=== PATIENT | male | born 1980 | race Caucasian/White ===

== ENCOUNTER → 2020-04-17 09:54 | Outpatient (CLI) | payer BC, SELFPAY ==
[2020-04-17 10:46] LABS: Chloride 105 mmol/L (98-107)
[2020-04-17 10:47] LABS: Potassium 4.9 mmoL/L (3.5-5.1); Sodium 142 mmol/L (136-145)
[2020-04-17 10:49] LABS: Alanine Aminotransferase 22 U/L (12-78); Alkaline Phosphatase 71 U/L (38-126); Anion Gap 13.9 mEq/L (5-15); Aspartate Amino Transferase 24 U/L (17-59); Bilirubin,Total 0.7 mg/dl (0.2-1.3); Blood Urea Nitrogen 13 mg/dl (9-20); Carbon Dioxide 28 mmol/L (22.0-30.0); Cholesterol 195 mg/dl (140-200); Estimated Glomerular Filt Rate 127 ml/min (>60); GFR (African American) 154 ML/MIN (>60); Triglycerides 136 mg/dl (30-150); VLDL Cholesterol 27 mg/dL (0-40)
[2020-04-17 10:50] LABS: Albumin/Globulin Ratio 1.7 (1.1-1.8); Calcium 10.6 mg/dl (8.4-10.2); Chol/HDL Ratio 3.6 (1-3.5); Globulin 2.9 g/dL (1.3-3.2); Glucose 113 mg/dl (74-100); HDL Cholesterol 54 mg/dl (40-60); Total Protein,Serum 7.9 g/dl (6.3-8.2)
[2020-04-17 11:06] LABS: 25-OH Vitamin D, Total 27.5 ng/mL (30-100)
[2020-04-17 11:43] LABS: Uric Acid 5.1 mg/dl (3.5-8.5)
[2020-04-17 13:30] LABS: Basophils # 0.1 K/mm3 (0-0.2); Basophils % 0.7 % (0.1-2.0); Eosinophils # 0.2 K/mm3 (0.0-0.4); Eosinophils % 1.2 % (0.1-12.0); Hemoglobin 14.7 g/dL (14.1-18.0); Lymphocytes # 2.1 K/mm3 (0.7-4.5); Lymphocytes % 15.5 % (10-50); Mean Corpuscular HGB Conc 33.4 g/dL (31.8-35.4); Mean Corpuscular Volume 89.9 fl (80-94); Mean Platelet Volume 9.7 fl (7.4-10.4); Monocytes # 0.7 K/mm3 (0.1-1.0); Neutrophils # 10.6 K/mm3 (1.8-7.8); Neutrophils % 77.6 % (37.0-80.0); Platelet Count 270 K/mm3 (142-424); Red Blood Count 4.89 M/mm3 (4.60-6.20); Red Cell Distribution Width 12.7 % (11.5-17.5); White Blood Count 13.7 K/mm3 (4.8-10.8)
[2020-04-17 13:39] LABS: Direct LDL Cholesterol 110.36 mg/dL (100-129)
[2020-04-17 14:18] LABS: Vitamin B12 903 pg/mL (239-931)
== END ==
PROVIDERS: Visit Provider Nurse Practitioner Family
DX: I10 Essential (primary) hypertension (principal); E78.5 Hyperlipidemia, unspecified; E55.9 Vitamin D deficiency, unspecified; E53.8 Deficiency of other specified B group vitamins; M10.9 Gout, unspecified
CPT/HCPCS: 36415; 80053; 80061; 82306; 82607; 84550; 85025

== ENCOUNTER → 2022-04-07 12:24 | Outpatient (CLI) | payer BC, SELFPAY ==
--- NOTE | 2022-04-07 | CA_ITS ---
APPROVED REPORT EXAM: Comprehensive 2D, Doppler, and color-flow Echocardiogram Compressor Station Chief Engineer: Donna Salazar, RT(R) Ht: 5 ft 9 in Wt: 193lbs BSA: 2.03 BP: 129/79 mmHg Indications: CP, hyperlipidemia, MARTINES, family history of HD 2D Dimensions LVOT 2.27 cm (M/F) 1.5-2.5 LVEF ([facility]) 62.10 % M: 52 - 72 LV Volume 89.50 mL M: 62 - 150 LV Volume Index 43.87 mL/m2 M: 34 - 74 M-Mode Dimensions RVDd 2.81 cm (0.9-2.6) LA Diam 2.74 cm (1.9-4.0) LVDd 4.59 cm (3.5-5.7) Ao Diam 3.54 cm (2.0-3.7) LVDs 3.42 cm (3.5-5.7) IVSd 1.21 cm (0.6-1.1) PWd 0.99 cm (0.6-1.1) EF (Teich) 50.30% FS 25.50% EDV (Teich) 96.80 mL ESV (Teich) 48.10 mL LV Diastology E Decel Time 150.00 (160-240 msec) E/A Ratio 0.8 MED E' 6.80 (< 7 cm/sec) E'/MED E' Ratio 10.15 (>14) LAT E' 11.90 (<10 cm/sec) E/LAT E' Ratio 5.80 (>14) Mitral Valve MV E Max Jacob. 69.00 (40-130 cm/s) MV A Velocity 88.00 (40-130 cm/s) E/A Ratio 0.79 MV Decel. Time 150.00 (160-240 ms) MV PHT 44.00 ms Left Ventricle Left atrium is normal size left ventricle is normal size estimated ejection fraction 55% with no regional wall motion abnormality, diastolic parameters are within normal range. Right Ventricle Right atrium and right ventricle are normal size and contractility. Aortic Valve Aortic valve is grossly normal there is no aortic stenosis or aortic insufficiency. Mitral Valve Mitral valve grossly normal, there is trace mitral regurgitation. Tricuspid Valve Tricuspid valve is grossly normal, there is trace tricuspid regurgitation, tricuspid regurgitation jet velocity is inadequate for calculation of the right ventricular systolic pressure. Pulmonic Valve Pulmonic valve is poorly visualized. Great Vessels Aortic root is normal size. Inferior vena cava is normal size with normal inspiratory collapse. Pericardium No significant pericardial effusion noted. Conclusion 1. Normal left ventricular size preserved left ventricular systolic function, estimated ejection fraction 55% with no regional wall motion abnormality, diastolic parameters are within normal range. 2. Trace mitral and tricuspid regurgitation. 3. No significant pericardial effusion noted. 4. Inferior vena cava is normal size with normal inspiratory collapse. Electronically signed by : Cristhian Peace MD 04/08/2022 05:58:08
== END ==
PROVIDERS: PCP Internal Medicine Adolescent Medicine; Visit Provider Nurse Practitioner Family
DX: R07.9 Chest pain, unspecified (principal)
CPT/HCPCS: 93306

== ENCOUNTER → 2022-05-13 19:32 | Outpatient (CLI) | payer BC, SELFPAY | PROVIDERS: PCP Specialist; Visit Provider Specialist | DX: G47.33 Obstructive sleep apnea (adult) (pediatric) (principal); R40.0 Somnolence; R06.83 Snoring | CPT/HCPCS: G0399 ==

== ENCOUNTER 2023-04-25 17:40 | Emergency (ER) | payer OTHER, SELFPAY ==
[2023-04-25 18:00] VITALS: BP 136/94; PULSE 76; RESP 18; TEMP 36.6; O2SAT 98; BMI 29.5
--- NOTE | 2023-04-25 18:08 | ED_ITS ---
Discharge Plan Disposition Patient Disposition: Home, Self-Care Condition: Good Prescriptions Prescriptions: No Action rosuvastatin 20 mg tablet 20 mg PO DAILY Patient Comments: TAKE 1 TABLET BY MOUTH ONCE DAILY valsartan 80 mg tablet 80 mg PO DAILY Patient Comments: TAKE 1 TABLET BY MOUTH ONCE DAILY Referrals Follow up/Referrals: Maxwell Fajardo MD [Primary Care Provider] - See instructions Activity Restrictions/Add. Instructions Additional Instructions/Restrictions: Drink plenty of fluids. Eat a diet that is low in sodium. Take the hypertension medication (valsartan) daily. Follow up with your regular doctor. Call them in the morning to let them know what's going on and to get a follow up appointment there. GO TO THE ER FOR ANY WORSENING SYMPTOMS Clinical Impressions Clinical Impression: HTN (hypertension) Stand Alone Forms Stand Alone Forms: Work/School Release Instructions Patient Instructions: Essential Hypertension Discharge ED Provider: Leon Rodríguez [facility] [place] HPI General Stated complaint: blood pressure Time Seen by Provider: 04/25/23 18:08 History of Present Illness Provider Complaint: He states that his blood pressure has been running higher than normal. He has been getting readings of 150s/100 at home on his automatic wrist cuff. He has a history of hypertension, but he has not been taking his prescribed valsartan regularly until his recent episode of high blood pressure. He denies any chest pain, shortness of breath, n/v, and any other symptoms except he has been feeling more tired than normal Related Data Home Medications Medication Instructions Recorded Confirmed rosuvastatin 20 mg tablet 20 mg PO DAILY 05/07/22 04/25/23 valsartan 80 mg tablet 80 mg PO DAILY 04/25/23 04/25/23 Allergies Allergy/AdvReac Type Severity Reaction Status Date / Time No Known Allergies Allergy Verified 08/10/22 09:25 [facility] Disclaimer: The information contained in this section may have been updated after the patient was seen, as this information can be updated by other users. Medical History Presence of surgical screw in left hand Family History Other Heart attack Hyperlipidemia Hypertension Social History Smoking Status: Never smoker alcohol intake: current current occupational status: employed Travel in the last 8 weeks: None ROS Obtained: Yes All systems reviewed & no additional complaints except as documented Constitutional Constitutional: Denies chills and Denies fever(s) Eyes Eyes: Denies eye discharge ENT Ears, Nose, Mouth, and Throat: Denies dizziness, Denies otalgia and Denies sore throat Cardiovascular Cardiovascular: Denies chest pain Respiratory Respiratory: Denies shortness of breath, Denies chest congestion, Denies cough, Denies stridor and Denies wheezing Gastrointestinal Gastrointestingal: Denies nausea or vomiting Musculoskeletal Musculoskeletal: Reports system reviewed and no additional complaints, except as documented and Denies arthralgias Integumentary/Breasts Skin/Breast: Denies rash Neurologic Neurologic: Denies dizziness and Denies paresthesias Allergic/Immunologic Allergic/Immunologic: Denies wheezing Physical Exam General General appearance: alert and in no apparent distress Head Head exam: atraumatic, normocephalic and normal inspection Eye Eye exam: Present normal appearance, PERRL and EOMI ENT ENT exam: Present normal exam, normal oropharynx, mucous membranes moist, TM's normal bilaterally and normal external ear exam Neck Neck exam: Present normal inspection, full ROM and trachea midline; Absent meningismus or lymphadenopathy Chest Chest inspection: Present normal inspection and symmetric chest wall rise; Absent tenderness Respiratory Respiratory exam: Present normal lung sounds bilaterally; Absent respiratory distress Cardiovascular Cardiovascular exam: Present regular rate and normal rhythm; Absent JVD Abdominal Exam Abdominal exam: Present soft and normal bowel sounds; Absent distention, tenderness or guarding Extremities Exam Extremities exam: Present normal inspection, full ROM and normal capillary refill; Absent calf tenderness Back Exam Back exam: Present normal inspection; Absent tenderness Neurological Exam Neurological exam: Present alert and oriented X3 Psychiatric Psychiatric exam: Present normal affect and normal mood Skin Skin exam: Present warm, dry, intact and normal color Lymphatic Lymphatic Findings: no adenopathy Medical Decision Making Medical Records Medical records reviewed: No I reviewed the patient's medical records. Ok Inquiry Pt receiving controlled substance: No
[2023-04-25 19:08] VITALS: BP 136/94; PULSE 76; RESP 18; TEMP 36.6; O2SAT 98
== END 2023-04-25 19:08 | disposition home or self-care (01) ==
PROVIDERS: Emergency Provider Nurse Practitioner Family; PCP Internal Medicine Adolescent Medicine
DX: I10 Essential (primary) hypertension (principal); E78.5 Hyperlipidemia, unspecified; I25.2 Old myocardial infarction
CPT/HCPCS: 99204; 99212; G0463

== ENCOUNTER 2023-10-28 10:05 | Outpatient (CLI) | payer OTHER, SELFPAY ==
--- NOTE | 2023-10-28 10:11 | XR_ITS ---
FINAL REPORT CLINICAL HISTORY: LLQ PAIN COMPARISON: None FINDINGS: A single view of the abdomen was obtained. There is a nonobstructive bowel gas pattern with a moderate stool burden. There are no abnormal calcifications. IMPRESSION: Nonobstructive bowel gas pattern with a moderate stool burden. Reviewed, Interpreted and Dictated by Keith Mercado III, MD Transcribed by Martha Mcnulty Authenticated and [facility]
== END 2023-10-28 23:59 | disposition home or self-care (01) ==
LOC: RAD 10:06
PROVIDERS: PCP Nurse Practitioner Family; Visit Provider Nurse Practitioner Family
DX: R10.32 Left lower quadrant pain (principal); K59.01 Slow transit constipation
CPT/HCPCS: 74019

== ENCOUNTER 2024-06-21 09:05 | Day surgery (SDC) | payer OTHER, SELFPAY ==
[2024-06-19 15:27] VITALS: BMI 28.1
[2024-06-21 09:47] VITALS: BP 128/73; PULSE 90; RESP 17; TEMP 36.6; O2SAT 96
--- NOTE | 2024-06-21 10:03 | P.PNANES_ITS ---
[facility] Disclaimer: The information contained in this section may have been updated after the patient was seen, as this information can be updated by other users. Medical History Dysphagia Sleep apnea Presence of surgical screw in left hand Surgical History Hx of hand surgery Family History Other Heart attack Hyperlipidemia Hypertension Social History Smoking Status: Never smoker alcohol intake: current alcohol intake frequency: other substance use type: denies use current occupational status: employed Travel in the last 8 weeks?: None Have you lived/traveled outside US in past 30 days?: No Contact w/someone who lives/traveled outside US past 30 days?: No Exposure to someone with infectious disease in past 14 days?: No Do you have a fever (greater than 100.4 F or 38 C)?: No Have you tested positive for COVID-19?: No Exposed to someone with COVID-19 in past 14 days?: No Do you have a sore throat?: No Do you have a cough?: No Do you have any weakness?: No Are you experiencing any nausea/vomitting?: No Do you have any diarrhea?: No Are you experiencing any unusual bleeding?: No Do you have any muscle aches/pain?: No Do you have any abdominal pain?: No Are you experiencing loss of taste or smell?: No [facility] Anesthesia Checklist Patient Identification Patient Identification: Arm Band Structural Data Admitted From: Home Planned Operative Procedure/s: EGD Consent for Planned Operative Procedure(s) Verified: Yes Verified Documents: Surgical Consent and History and Physical NPO Status Verified Time NPO: 00:00 Additional verifications Anesthesia Reactions: No Airway Assessment Mallampati Score:: Class II C-Spine Mobility Assessed: Yes TMJ Mobility Assessed: Yes Dentition: Good Dentition Neurological Assessment Level of Consciousness: Awake, Alert and Appropriate Anesthesia Plan Anesthesia Risk discussed: Yes Anesthesia Plan: Verified ASA Class: II Anesthesia Type: MAC
[2024-06-21] MEDS: LACTATED RINGERS 1000ML 1,000 ML 50 ML IV (10:10)
--- NOTE | 2024-06-21 10:33 | P.HP_ITS ---
History of Present Illness *Admission Date: 06/21/24 *Reason for visit:: Dysphagia *History of present illness: Mr. Nice is a 44-year-old gentleman who is here for diagnostic/therapeutic upper endoscopy secondary to dysphagia. The examination is deemed medically necessary for EGD. The patient has been seen, interviewed and examined prior to the procedure by both myself and the anesthesia provider. [facility] Disclaimer: The information contained in this section may have been updated after the patient was seen, as this information can be updated by other users. Medical History Dysphagia Sleep apnea Presence of surgical screw in left hand Surgical History Hx of hand surgery Family History Other Heart attack Hyperlipidemia Hypertension Social History Smoking Status: Never smoker alcohol intake: current alcohol intake frequency: other substance use type: denies use current occupational status: employed Travel in the last 8 weeks?: None Have you lived/traveled outside US in past 30 days?: No Contact w/someone who lives/traveled outside US past 30 days?: No Exposure to someone with infectious disease in past 14 days?: No Do you have a fever (greater than 100.4 F or 38 C)?: No Have you tested positive for COVID-19?: No Exposed to someone with COVID-19 in past 14 days?: No Do you have a sore throat?: No Do you have a cough?: No Do you have any weakness?: No Are you experiencing any nausea/vomitting?: No Do you have any diarrhea?: No Are you experiencing any unusual bleeding?: No Do you have any muscle aches/pain?: No Do you have any abdominal pain?: No Are you experiencing loss of taste or smell?: No Other Medical History Have you received the Flu Vaccine for this season: No Have you received the Pneumonia Vaccine: No Review of Systems Review of Systems Review of systems (narrative): Negative *Cardiovascular Comments: Negative *Gastrointestinal Comments: Negative *Genitourinary Comments: Negative *Musculoskeletal Comments: Negative *Neurologic Comments: Negative Meds Home Medications and Allergies Home Medications ?Medication ?Instructions ?Recorded ?Confirmed ?Type rosuvastatin 20 mg tablet 20 mg PO DAILY 05/07/22 06/21/24 History amlodipine 5 mg tablet 5 mg PO DAILY 04/12/24 06/21/24 History cholecalciferol (vitamin D3) 125 125 mcg PO DAILY 04/12/24 06/21/24 History mcg (5,000 unit) capsule multivitamin 1 tab PO DAILY 04/12/24 06/21/24 History New Prescriptions to Start Prescriptions: Allergies Allergy/AdvReac Type Severity Reaction Status Date / Time No Known Allergies Allergy Verified 06/21/24 09:45 Exam Data for Last 24 hours Vital signs and Labs for Last 24 Hours: Temp Pulse Resp BP Pulse Ox O2 Del Method 97.8 F 90 17 128/73 96 Room Air 06/21/24 09:47 06/21/24 09:47 06/21/24 09:47 06/21/24 09:47 06/21/24 09:47 06/21/24 09:47 I & O for Last 24 hours: Intake & Output 06/18/24 06/19/24 06/20/24 06/21/24 23:59 23:59 23:59 23:59 Weight 185 lb *Routine HEENT Exam Head: Present normocephalic Eye: Present EOMI and PERRL ENT: Present mucous membranes moist *Routine Neck Exam Neck: Present supple *Routine Respiratory Exam Respiratory: Present CTA bilaterally *Routine Cardiovascular Exam Cardiovascular: Present RRR *Routine Abdominal Exam Abdominal: Present soft and normoactive bowel sounds; Absent tenderness *Routine Rectal Exam Rectal:: deferred *Routine Genitalia Exam Genitalia:: deferred *Routine Extremities Exam Extremities: Absent cyanosis, clubbing or edema *Routine Skin Exam Skin: Present warm; Absent rash *Routine Neurological Exam Neurological: Present alert and oriented X3 Assessment and Plan *Assessment and plan (1) Dysphagia: Status: Acute Category: Medical Code(s): R13.10 - Dysphagia, unspecified (2) LUQ pain: Status: Acute Category: Medical Code(s): R10.12 - Left upper quadrant pain Plan A/P: 1. Dysphagia with some left upper quadrant abdominal pain, belching is the preprocedural diagnosis. The patient will be anesthetized/sedated using MAC sedation. The patient has been seen and examined. Cardiac and lung assessment prior to the examination is stable. Proceed with planned diagnostic EGD.
--- NOTE | 2024-06-21 10:34 | P.PCN_ITS ---
[facility] Procedure Note Date: 06/21/24 Time: 10:51 Procedure Note:: Upper Endoscopy Procedure Report: Esophagogastroduodenoscopy with cold biopsies and TTS balloon dilation Endoscopost: Conner Burton II, MD Referring Physician: LEXII Headley Date of Procedure: June 21, 2024 Equipment: Olympus GIF 190 standard upper endoscope Sedation: MAC sedation Indications: Mr. Nice is a 44-year-old gentleman with dysphagia to primarily meats. This occurred with pork chops. He went to the emergency department 5 years ago with meat impaction and he was reporting having food getting hung a couple of times a week. He was having some left upper quadrant abdominal discomfort but this improved with dietary measures. He reports regular bowel function and the office had recommended that he begin MiraLAX plus Metamucil routinely. He now states that he is regular. He does get some belching and bloating. This is his first upper endoscopy. Procedure: Prior to the procedure, a history and physical exam was performed, and patient's medications and allergies were reviewed. The risks, benefits and alternatives of the sedation and procedure were discussed with the patient. All questions were answered and informed consent was obtained. The patient was brought to the procedure room. Patient identification and proposed procedure were verified by the physician and the nurse. The patient was placed in a left lateral decubitus position and the scope was passed under direct vision. Throughout the procedure, the patient's blood pressure, pulse, and oxygen saturations were monitored continuously. The upper GI endoscopy was accomplished without difficulty. The patient tolerated the procedure well. Findings: The scope was passed directly into the upper esophagus and advanced to the third portion of the duodenum. The post bulbar duodenum and duodenal bulb were normal with normal mucosa and conniventes. The scope was withdrawn through a normal duodenal bulb and pylorus into the stomach. There was minimal reactive gastropathy of the antrum and cold biopsies were obtained. The body and fundus of the stomach were normal. Upon retroflexion there was no hiatal hernia. The scope was then withdrawn into the esophagus. There was no evidence of reflux esophagitis. There was corrugation, linear striation and furrowing within the esophagus with some mucosal exudate and these findings were most consistent with eosinophilic esophagitis. Cold biopsies were taken from the distal and proximal esophagus to rule out eosinophilic esophagitis. Next, the esophagus was dilated to 20 mm (60 Italian) with a TTS hydrostatic balloon. There was a distal fibrotic ring and proximal fibrotic ring. The remainder of the esophageal mucosa was normal. Impression: 1. Esophageal mucosal corrugation, furrowing?consistent with eosinophilic esophagitis status post biopsies and dilation to 20 mm Plan: I will follow-up the biopsies and initiate omeprazole 40 mg daily. I will also obtain RAST food allergy testing today. I will discuss the findings with the patient and family.
[2024-06-21 10:42] VITALS: O2SAT 98
[2024-06-21 10:58] VITALS: BP 123/83; PULSE 94; RESP 18; O2SAT 97
[2024-06-21 11:08] VITALS: BP 127/79; PULSE 84; RESP 16; O2SAT 97
[2024-06-21 11:18] VITALS: BP 119/81; PULSE 89; RESP 16; O2SAT 97
[2024-06-21 11:25] VITALS: BP 121/80; PULSE 87; RESP 16; O2SAT 98
[2024-06-25 07:22] LABS: F001-IgE Egg White <0.10 kU/L (Class 0); F003-IgE Codfish <0.10 kU/L (Class 0); F004-IgE Wheat 0.82 kU/L (Class II); F010-IgE Sesame Seed 0.15 kU/L (Class 0/I); F013-IgE Peanut 0.64 kU/L (Class II); F014-IgE Soybean <0.10 kU/L (Class 0); F024-IgE Shrimp <0.10 kU/L (Class 0); F256-IgE Walnut 0.14 kU/L (Class 0/I); F338-IgE Scallop <0.10 kU/L (Class 0)
== END 2024-06-21 11:28 | disposition home or self-care (01) ==
PROVIDERS: PCP Nurse Practitioner Family; Visit Provider Internal Medicine Gastroenterology
PROC: 0DJ08ZZ Inspection of Upper Intestinal Tract, Via Natural or Artificial Opening Endoscopic (ICD-10-PCS; CPT 43239; principal; 2024-06-21 11:00)
DX: R13.10 Dysphagia, unspecified (principal); R10.12 Left upper quadrant pain; K20.0 Eosinophilic esophagitis
CPT/HCPCS: 43239; 43249; 36415; 86003; 86008; C1726; J7120